=== PATIENT | male | born 1995 | race Caucasian/White ===

== ENCOUNTER 2018-09-18 14:44 | Outpatient (REF) | payer OTHER, SELFPAY ==
[2018-09-18 18:27] LABS: Abs Immature Grans 0.01 k/cumm (0.0-0.09); Absolute Basophil Count 0.02 k/cumm (0.0-0.2); Absolute Eosinophil Count 0.26 k/cumm (0.0-0.7); Absolute Lymphocyte Count 2.13 k/cumm (1.2-3.4); Absolute Monocyte Count 0.71 k/cumm (0.11-0.7); Absolute Neutrophil Count 3.93 k/cumm (1.2-6.7); Basophils % 0.3; Eosinophils % 3.7; HCT 41.4 % (40.0-50.0); Immature Grans % 0.1; Lymphocytes % 30.2; Mean Corp. HGB Concentration 33.8 g/dL (32.0-36.0); Mean Corpuscular Hemoglobin 29.1 pg (27.0-33.0); Mean Corpuscular Volume 86.1 fL (80-95); Mean Platelet Volume 11.4 fL (8.0-11.0); Monocytes % 10.1; Neutrophils % 55.6; Platelet Count 271 x1000/uL (130-400); RBC 4.81 m/cumm (4.50-6.00); RBC Distribution Width 12.2 % (11.8-14.1); White Blood Cell Count 7.06 k/cumm (4.4-10.8)
[2018-09-18 18:30] LABS: ALT 28 U/L (12-78); AST 23 U/L (15-37); Albumin 4.1 g/dL (3.4-5.0); Alkaline Phosphatase 129 U/L (46-116); Anion Gap 6.8 mmol/L (3-11); BUN 11 mg/dL (7-18); Bilirubin, Total 0.3 mg/dL (0.2-1.0); CO2 31.2 mmol/L (21.0-32.0); CREATININE 1.14 mg/dL (0.70-1.30); Calcium 9.3 mg/dL (8.5-10.1); Chloride 104 mmol/L (98-107); Glucose 96 mg/dL (70-100); Potassium 4.1 mmol/L (3.5-5.1); Sodium 142 mmol/L (136-145); TSH (W/Ref FT4) 0.89 uIU/mL (0.358-3.74); Total Protein 7.8 g/dL (6.4-8.2)
== END 2018-09-18 15:04 ==
LOC: LBN 14:44
PROVIDERS: PCP Family Medicine; Visit Provider Family Medicine
DX: R55 Syncope and collapse (principal)
CPT/HCPCS: 80053; 84443; 85025

== ENCOUNTER 2018-09-18 15:37 | Outpatient (CLI) | payer OTHER, SELFPAY ==
--- NOTE | 2018-10-13 08:39 | ZIOP_ITS ---
ZIO PATCH EVENT RECORDER REPORT DATE OF DICTATION September 14, 2018 INDICATION Syncope. PRESCRIBING CLINICIAN Callum Bray D.O. ENROLLMENT 09/18/2018 at 3:53 p.m. until 10/02/2018 at 3:53 p.m. FINDINGS 1. Baseline sinus rhythm, 38-196 beats per minute, average 79 beats per minute. 2. Rare PAC, less than 1%, no SVT, no AF. 3. Rare PVC, less than 1%, no VT. 4. 1 episode of sinus rate slowing with resulting 3.8 second pause, consistent with vagal event. 2 episodes with single dropped beats, resulting in 1.4 and 1.6 second pauses. 5. 6 trigger events: 2 events with 3.8 and 1.4 second pauses, as previously described. 4 events with sinus rhythm, 57-107 beats per minute. 6. 2 symptoms events: lightheaded with previously described 3.8 second pause. Urinary incontinence after passing out, lightheaded, fainted, reported 2 hours after EKG recording stopped. Oleg Harding M.D. LAWRENCE/candace T - 10/13/2018 CPT:0298T
== END 2018-09-18 15:57 ==
PROVIDERS: PCP Family Medicine; Visit Provider Family Medicine
DX: R55 Syncope and collapse (principal); I45.9 Conduction disorder, unspecified
CPT/HCPCS: 93225

== ENCOUNTER 2018-10-02 18:40 | Emergency (ER) | payer OTHER, SELFPAY ==
[2018-10-02] VITALS (27 sets, daily range): BP systolic 107–134; BP diastolic 57–78; PULSE 50–84; RESP 12–21; TEMP 36.7; O2SAT 95–100
--- NOTE | 2018-10-02 18:59 | DI.CT_ITS ---
SYMPTOM/DIAGNOSIS: DIZZINESS, ? SEIZURE CRANIAL CT (WITHOUT CONTRAST): A noncontrast cranial CT was performed. The ventricular system is normal in appearance. There is no evidence of an intracranial mass lesion. There is no evidence of a subdural or epidural hematoma. No focal areas of decreased attenuation are seen. CONCLUSION: Normal noncontrast Cranial CT.
--- NOTE | 2018-10-02 19:03 | ED.GENADUL_ITS ---
Discharge Plan Disposition Patient Disposition: HOME Condition: Stable Discharge Details Chief Complaint: Dizzy/Sync Clinical Impression: Syncope Primary Care Provider: Callum Bray ED Provider: Elsy Jaquez Home Meds and New Rx's Prescriptions: No Action No Known Home Meds RF: 0 Discharge Instructions Instructions: Syncope (ED) Additional Instructions: Your blood work and imaging did not show any concerning findings. Call your primary care doctor tomorrow morning to schedule follow-up appointment for reevaluation. Follow-up on your scheduled appointment for your echocardiogram. Do not drive or swim/bathe alone until cleared by your primary care provider. If you have fevers, chest pain, difficulty breathing, or other symptoms that are of concern to you return to the emergency department. Discharge Data Discharge Date/Time-TO BE ENTERED AT DEPARTURE: 10/02/18 22:02 Discharge Physician: Elsy Jaquez Medical Decision Making <Jake Mares MD - Last Filed: 10/03/18 08:25> 23 yo male who denies any chronic medical problems comes in with chief complaint of passing out. Apparently since July he has had episodes where he loses consciousness briefly. HE saw his pcp earlier this month and is currently wearing a zio patch. 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 Unclear how long he was on the ground for as it was unwitnessed, he woke up with coworker trying to wake him up. He was incontinent of urine which hasn't happened before. He denies any chest pain or pressure, sob, and has no symptoms now. Given urine incontinence could be having seizures, will image his head, ecg unremarkable, will order lab work and monitor. Suspect this could be orthostasis but will evaluate for other causes, and is already wearing a zio patch. No hypoxia or tachycardia and no evidence of dvt, no pleuritic chest pain so doubt PE. Is well low and perc negative as well. NO chest pain or pressure to suggest acs Pt will be signed out pending results of imaging and lab work. Differential Diagnosis vasovagal syncope, seizures, arrythmia ECG Data Attestation: I personally reviewed and interpreted this ECG (s) as follows: Prior ECG tracings: not available for review Interpretation: sinus rhythm, rate of 51, pr 168, no acute st t wave ischemic findings <Elsy Son Jaquez DO - Last Filed: 10/02/18 21:54> Medical Records Medical records reviewed: Yes I reviewed the patient's medical records. Imaging Data Radiologic Study: Radiologist's impression: CT Head Without Contrast EXAM DATE/TIME: 10/02/2018 6:59 PM FINDINGS: Brain: No evidence for acute transcortical infarct. No mass effect or midline shift. No extra-axial collection. No acute intracranial hemorrhage. Basal cisterns are patent. Ventricles: Normal. No ventriculomegaly. Bones/joints: Unremarkable. No acute fracture. Sinuses: Visualized sinuses are unremarkable. No acute sinusitis. Mastoid air cells: Visualized mastoid air cells are unremarkable. No mastoid effusion. Soft tissues: Unremarkable. IMPRESSION: No evidence for acute transcortical infarct, acute intracranial hemorrhage, or mass effect. Lab Data Lab results reviewed: Yes I reviewed the patient's lab results. Laboratory Tests Range/Units 10/02/18 10/02/18 19:06 19:06 WBC (4.4-10.8) k/cumm 7.06 RBC (4.50-6.00) m/cumm 4.45 L Hgb (13.5-17.5) g/dL 13.2 L Hct (40.0-50.0) % 38.5 L MCV (80-95) fL 86.5 MCH (27.0-33.0) pg 29.7 MCHC (32.0-36.0) g/dL 34.3 RDW (11.8-14.1) % 12.4 Plt Count (130-400) x1000/uL 247 MPV (8.0-11.0) fL 10.7 Immature Gran % 0.1 Neutrophils % 57.9 Lymphocytes % 28.5 Monocytes % 9.1 Eosinophils % 4.1 Basophils % 0.3 Absolute Neutrophils (1.2-6.7) k/cumm 4.09 Absolute Lymphocytes (1.2-3.4) k/cumm 2.01 Absolute Monocytes (0.11-0.7) k/cumm 0.64 Absolute Eosinophils (0.0-0.7) k/cumm 0.29 Absolute Basophils (0.0-0.2) k/cumm 0.02 Sodium (136-145) mmol/L 140 Potassium (3.5-5.1) mmol/L 4.3 Chloride (98-107) mmol/L 103 Carbon Dioxide (21.0-32.0) mmol/L 30.6 Anion Gap (3-11) mmol/L 6.4 BUN (7-18) mg/dL 17 Creatinine (0.70-1.30) mg/dL 1.17 Estimated GFR/1.73 m2 (mL/min/1.73m2) >= 60.00 Glucose (70-100) mg/dL 86 Calcium (8.5-10.1) mg/dL 8.6 Magnesium (1.8-2.4) mg/dL 1.8 Total Bilirubin (0.2-1.0) mg/dL 0.3 AST (15-37) U/L 22 ALT (12-78) U/L 30 Alkaline Phosphatase (46-116) U/L 112 Troponin I (0.00-0.06) ng/mL < 0.02 Total Protein (6.4-8.2) g/dL 7.4 Albumin (3.4-5.0) g/dL 3.7 ECG Data Attestation: I personally reviewed and interpreted this ECG (s) as follows: Interpretation: Rate of 51, sinus bradycardia, no acute ST elevation or depression. QTc 383. QRS 98. T wave inversion in lead V2. HPI <Jake Mares MD - Last Filed: 10/03/18 08:25> General Mode of arrival: ambulatory . Date/Time Provider Initiated Documentation: 10/02/18 18:49 . Limitations to Documentation: no limitations . Information obtained by: patient . History of Present Illness 23 year old M presents to the emergency department with the chief complaint of passed out, Patient started experiencing this hour(s) (2) and it has been intermittent. No relieving factors improve symptom(s), No exacerbating factors reported . Patient notes no other symptoms.. Patient did receive the following treatments prior to arrival, none Related Data Home Medications Medication Instructions Recorded Confirmed Unknown [No Known Home Meds] 06/26/18 10/02/18 Allergies Allergy/AdvReac Type Severity Reaction Status Date / Time amoxicillin Allergy Severe facial Verified 10/02/18 19:26 swelling, no use of legs Penicillins Allergy Severe facial Verified 10/02/18 19:26 swelling, no use of legs General Stated Complaint: Dizzy/Sync REINIER: 2 Review of Systems <Jake Mares MD - Last Filed: 10/03/18 08:25> Review of Systems All systems reviewed & are unremarkable except as noted in HPI and below Constitutional Denies chills and Denies fever(s) ENT Denies change in voice Cardiovascular Denies chest pain and Denies dyspnea Respiratory Denies cough and Denies dyspnea Gastrointestinal Denies abdominal pain, Denies nausea and Denies vomiting Musculoskeletal Denies joint swelling Integumentary/Breasts Denies rash PFSH <Jake Mares MD - Last Filed: 10/03/18 08:25> Medical History Phimosis (Chronic) Attention deficit hyperactivity disorder (Acute) Family History Mother No problems noted. Father No problems noted. Sister No problems noted. Sister No problems noted. Sister No problems noted. Sister No problems noted. Sister No problems noted. Brother No problems noted. 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 Smoking and Tabacco status: Never substance use type: does not use fire extinguisher in home: Yes carbon monox detector in home: Yes Exam <Jake Mares MD - Last Filed: 10/03/18 08:25> Const General: no acute distress Orientation: alert HENMT Head: normal to inspection Ears: external ears normal General nose exam: external nose normal Mouth: moist mucous membranes Eyes General: appearance normal, both eyes and all related structures Neck Neck: normal visual inspection Resp Effort & Inspection: normal respiratory effort and able to speak in complete sentences Cardio Rate: regular rate Skin General skin exam: no rashes or lesions noted Neuro General: alert and oriented x3 Extrem General: normal to inspection Psych Mental Status: mental status grossly normal Course <Jake Mares MD - Last Filed: 10/03/18 08:25> Vital Signs Temperature 36.7 C 10/02/18 18:43 Pulse 59 L 10/02/18 18:43 Respiratory Rate 16 10/02/18 18:43 Blood Pressure 134/68 10/02/18 18:43 Pulse Oximetry 100 10/02/18 18:43 Temperature 36.7 C 10/02/18 18:43 Temperature Source Temporal Artery Scan 10/02/18 18:43 Pulse 59 L 10/02/18 18:43 Respiratory Rate 16 10/02/18 18:43 Blood Pressure 134/68 10/02/18 18:43 Blood Pressure Position Sitting 10/02/18 18:43 Pulse Oximetry 100 10/02/18 18:43 Oxygen Delivery Method Room Air 10/02/18 18:43 Oxygen Flow Rate 0 10/02/18 18:43 Pain Level 0 10/02/18 18:43 Sign Out <Jake Mares MD - Last Filed: 10/03/18 08:25> Sign Out Data: Sign Out Comment: follow up on labs and imaging Last updated by Jake Mares MD at 10/02/18 19:29 Post-Handoff Eval: CT head negative. EKG and labs unremarkable. He has had 7-8 episodes of lightheadedness since July. He has had 2 syncopal episodes, once on July 27 while standing in jainism - and once today while standing associated with urinary incontinence. No complaints of chest pain, shortness of breath, headache, palpitations. No oral injury. Differential diagnosis includes seizure versus syncope. Patient thinks that the episodes are usually related to when he does not drink enough water. Vitals remained stable. No acute findings on exam. No focal deficits. Patient seen by PCP for this who has scheduled echocardiogram on October 15 and he currently has a Zio patch in place. He is feeling much better and is requesting to go home. He is instructed to call his primary care doctor tomorrow to schedule follow-up appointment for reevaluation and whether PCP can consider ordering an EEG. He is instructed to drink plenty of water, get plenty of rest, and to return here at any time if worse.
[2018-10-02 19:14] LABS: Abs Immature Grans 0.01 k/cumm (0.0-0.09); Absolute Basophil Count 0.02 k/cumm (0.0-0.2); Absolute Eosinophil Count 0.29 k/cumm (0.0-0.7); Absolute Lymphocyte Count 2.01 k/cumm (1.2-3.4); Absolute Monocyte Count 0.64 k/cumm (0.11-0.7); Absolute Neutrophil Count 4.09 k/cumm (1.2-6.7); Basophils % 0.3; Eosinophils % 4.1; HCT 38.5 % (40.0-50.0); HGB 13.2 g/dL (13.5-17.5); Immature Grans % 0.1; Lymphocytes % 28.5; Mean Corp. HGB Concentration 34.3 g/dL (32.0-36.0); Mean Corpuscular Hemoglobin 29.7 pg (27.0-33.0); Mean Corpuscular Volume 86.5 fL (80-95); Mean Platelet Volume 10.7 fL (8.0-11.0); Monocytes % 9.1; Neutrophils % 57.9; Platelet Count 247 x1000/uL (130-400); RBC 4.45 m/cumm (4.50-6.00); RBC Distribution Width 12.4 % (11.8-14.1); White Blood Cell Count 7.06 k/cumm (4.4-10.8)
[2018-10-02 19:28] LABS: ALT 30 U/L (12-78); AST 22 U/L (15-37); Albumin 3.7 g/dL (3.4-5.0); Alkaline Phosphatase 112 U/L (46-116); Anion Gap 6.4 mmol/L (3-11); BUN 17 mg/dL (7-18); Bilirubin, Total 0.3 mg/dL (0.2-1.0); CO2 30.6 mmol/L (21.0-32.0); CREATININE 1.17 mg/dL (0.70-1.30); Calcium 8.6 mg/dL (8.5-10.1); Chloride 103 mmol/L (98-107); Glucose 86 mg/dL (70-100); Magnesium 1.8 mg/dL (1.8-2.4); Potassium 4.3 mmol/L (3.5-5.1); Sodium 140 mmol/L (136-145); Total Protein 7.4 g/dL (6.4-8.2)
[2018-10-02 19:36] LABS: Troponin I < 0.02 ng/mL (0.00-0.06)
--- NOTE | 2018-10-02 20:06 | DI.VRAD_ITS ---
EXAM: CT Head Without Contrast EXAM DATE/TIME: 10/02/2018 6:59 PM CLINICAL HISTORY: 23 years old, male; Signs and symptoms; Dizziness TECHNIQUE: Axial computed tomography images of the head/brain without contrast. All CT scans at this facility use at least one of these dose optimization techniques: automated exposure control; mA and/or kV adjustment per patient size (includes targeted exams where dose is matched to clinical indication); or iterative reconstruction. Coronal and sagittal reformatted images were created and reviewed. COMPARISON: No relevant prior studies available. FINDINGS: Brain: No evidence for acute transcortical infarct. No mass effect or midline shift. No extra-axial collection. No acute intracranial hemorrhage. Basal cisterns are patent. Ventricles: Normal. No ventriculomegaly. Bones/joints: Unremarkable. No acute fracture. Sinuses: Visualized sinuses are unremarkable. No acute sinusitis. Mastoid air cells: Visualized mastoid air cells are unremarkable. No mastoid effusion. Soft tissues: Unremarkable. IMPRESSION: No evidence for acute transcortical infarct, acute intracranial hemorrhage, or mass effect. Dictated and Authenticated by: Emmanuel Williamson MD. Ordering:GHISLAINE Joseph MD
[2018-10-03 01:20] VITALS: BP 112/57; PULSE 50; RESP 15; O2SAT 96
== END 2018-10-02 22:02 | disposition home or self-care (01) ==
PROVIDERS: Emergency Medicine; Emergency Provider Physician Assistant; PCP Family Medicine
DX: R55 Syncope and collapse (principal)
CPT/HCPCS: 36415; 80053; 93005; 99285; 70450; 83735; 84484; 85025; 93010

== ENCOUNTER 2018-10-03 09:31 | Outpatient (CLI) | payer OTHER, SELFPAY ==
--- NOTE | 2018-10-03 15:14 | MERGE_ITS ---
*[facility]* *[facility]* [address] [place] [address] Date of study: 10/03/2018 Transthoracic Echocardiography M-mode, complete 2D, complete spectral Doppler, and color Doppler *STUDY CONCLUSIONS* Impressions: Normal study. Summary: 1. Left ventricle: The cavity size was normal. Wall thickness was normal. Systolic function was normal. The estimated ejection fraction was 60-65%. Wall motion was normal; there were no regional wall motion abnormalities. 2. Right ventricle: The cavity size was normal. Wall thickness was normal. Systolic function was normal. *PATIENT PRESENTATION* Height: 180.3cm ((71in) ) S/D Pressure: 116 / 72 Weight: 113.4kg ((249.5lb) ) BSA: 2.42m^2 Test start time: 03:10 PM. Test stop time: 04:15 PM. PERFORMING Unknown PERFORMING [facility] [employer] MAKER Batsheva Malone ORDERING Callum Bray REFERRING Callum Bray *PROCEDURE DATA* Procedure information: This study was interpreted by [facility]. Pertinent images and digital data are archived for permanent storage and are available for subsequent review. No prior study was available for comparison. Study status: Routine. Transthoracic echocardiography. M-mode, complete 2D, complete spectral Doppler, and color Doppler. A Transthoracic Echocardiogram was performed. Scanning was performed from the parasternal, apical, subcostal, and suprasternal notch acoustic windows. Images were obtained using an ScreachTV 2000 cardiac ultrasound machine. Image quality was adequate. Study completion: The patient tolerated the procedure well. History: PMH: Syncope. *CARDIAC ANATOMY* Left ventricle: The cavity size was normal. Wall thickness was normal. Systolic function was normal. The estimated ejection fraction was 60-65%. Wall motion was normal; there were no regional wall motion abnormalities. Aortic valve: Trileaflet; normal thickness leaflets. Mobility was not restricted. Doppler: Transvalvular velocity was within the normal range. There was no stenosis. There was no significant regurgitation. VTI ratio of LVOT to aortic valve: 1.06. Valve area (VTI): 3.8cm^2. Indexed valve area (VTI): 1.6cm^2/m^2. Peak velocity ratio of LVOT to aortic valve: 0.87. Valve area (Vmax): 3.1cm^2. Indexed valve area (Vmax): 1.3cm^2/m^2. Mean velocity ratio of LVOT to aortic valve: 0.78. Valve area (Vmean): 2.8cm^2. Indexed valve area (Vmean): 1.1cm^2/m^2. Mean gradient (S): 3.7mm Hg. Peak gradient (S): 6.8mm Hg. Aorta: Aortic root: The aortic root was normal in size. Ascending aorta: The ascending aorta was normal in size. Mitral valve: Structurally normal valve. Mobility was not restricted. Doppler: Transvalvular velocity was within the normal range. There was no evidence for stenosis. There was no significant regurgitation. Valve area by pressure half-time: 3.4cm^2. Indexed valve area by pressure half-time: 1.4cm^2/m^2. Peak gradient (D): 2.3mm Hg. Left atrium: The atrium was normal in size. Right ventricle: The cavity size was normal. Wall thickness was normal. Systolic function was normal. Pulmonic valve: Doppler: Transvalvular velocity was within the normal range. There was no evidence for stenosis. There was trivial regurgitation. Peak gradient (S): 7.2mm Hg. Tricuspid valve: Structurally normal valve. Doppler: Transvalvular velocity was within the normal range. There was no evidence for stenosis. There was trivial regurgitation. Pulmonary artery: Pulmonary systolic pressure was within the normal range. Right atrium: The atrium was normal in size. Pericardium: There was no pericardial effusion. Systemic veins: Inferior vena cava: The vessel was normal in size. The respirophasic diameter changes were in the normal range (greater than or equal to 50%), consistent with normal central venous pressure. Measurements Left ventricle Value Reference LV ID, ED, PLAX 4.8 cm 3.5 - 6.0 LV ID, ES, PLAX 3.1 cm 2.1 - 4.0 LV PW thickness, ED, PLAX 0.9 cm LV end-diastolic volume, 1-p A2C 164 ml LV ejection fraction, 1-p A2C 51 % LV end-diastolic volume, 1-p A4C 142 ml LV ejection fraction, 1-p A4C 56 % LV e', medial 0.103 m/sec LV E/e', medial 7 Ventricular septum Value Reference IVS thickness, ED, PLAX 0.9 cm LVOT Value Reference LVOT ID, A-P 2.1 cm LVOT area 3.6 cm^2 LVOT peak velocity, S 1.13 m/sec LVOT mean velocity, S 0.7 m/sec LVOT VTI, S 25.4 cm LVOT peak gradient, S 5.2 mm Hg LVOT mean gradient, S 2.4 mm Hg Stroke volume (SV), LVOT DP 90 ml Stroke index (SV/bsa), LVOT DP 37 ml/m^2 Aortic valve Value Reference Aortic valve peak velocity, S 1.3 m/sec Aortic valve mean velocity, S 0.89 m/sec Aortic valve VTI, S 24.0 cm Aortic mean gradient, S 3.7 mm Hg Aortic peak gradient, S 6.8 mm Hg VTI ratio, LVOT/AV 1.06 Aortic valve area, VTI 3.8 cm^2 Velocity ratio, peak, LVOT/AV 0.87 Aortic valve area, peak velocity 3.1 cm^2 Velocity ratio, mean, LVOT/AV 0.78 Aortic valve area, mean velocity 2.8 cm^2 Aortic valve area/bsa, mean velocity 1.1 cm^2/m^2 Aorta Value Reference Aortic root ID, ED 3.1 cm Ascending aorta ID, A-P, S 2.9 cm Left atrium Value Reference LA ID, A-P, ES 3.3 cm LA ID/bsa, A-P 1.3 cm/m^2 <=2.2 LA area, ES, A4C 18.7 cm^2 8.8 - 23.4 LA area, ES, A2C 18 cm^2 LA volume/bsa, S 23 ml/m^2 LA volume, ES, 2-p 50 ml LA volume/bsa, ES, 2-p 21 ml/m^2 LA/aortic root ratio 1.05 Mitral valve Value Reference Mitral E-wave peak velocity 0.76 m/sec Mitral A-wave peak velocity 0.48 m/sec Mitral deceleration time 222 ms 150 - 230 Mitral pressure half-time 64 ms Mitral peak gradient, D 2.3 mm Hg Mitral E/A ratio, peak 1.58 Mitral valve area, PHT, DP 3.4 cm^2 Pulmonary arteries Value Reference PA pressure, S, DP 16 mm Hg <=30 Tricuspid valve Value Reference Tricuspid regurg peak velocity 1.8 m/sec Tricuspid peak RV-RA gradient 13.7 mm Hg Systemic veins Value Reference Estimated CVP 10 mm Hg Right ventricle Value Reference RV pressure, S, DP 24 mm Hg <=30 Pulmonic valve Value Reference Pulmonic peak gradient, S 7.2 mm Hg Legend: (L) and (H) guero values outside specified reference range. I have personally reviewed the images and have reviewed and edited the reported findings. Electronically signed by Oleg Harding 10/05/2018 12:09
== END 2018-10-03 09:51 ==
PROVIDERS: PCP Family Medicine; Visit Provider Family Medicine
DX: R55 Syncope and collapse (principal); R42 Dizziness and giddiness
CPT/HCPCS: 93306

== ENCOUNTER 2018-10-09 01:01 | Outpatient (CLI) | payer OTHER, SELFPAY ==
--- NOTE | 2018-10-09 09:53 | DI.MRI_ITS ---
SYMPTOM/DIAGNOSIS: REPEATED SYNCOPE, NORMAL DRY CT, R55 BRAIN MRA: Comparison is made with head CT dated 10/02/18. A 3D time of flight study was performed. The [place] vasculature appears intact. There is no evidence of aneurysm, vascular occlusion or significant stenosis. IMPRESSION: Negative MRA of the [place].
== END 2018-10-09 01:21 ==
PROVIDERS: PCP Family Medicine; Visit Provider Family Medicine
DX: R55 Syncope and collapse (principal)
CPT/HCPCS: 70544

== ENCOUNTER 2020-06-10 02:00 | Outpatient (CLI) | payer OTHER, SELFPAY ==
[2020-06-13 10:09] LABS: SARS-CoV-2 RNA Not Detected (NotDetected); SARS-CoV-2 RNA Source Nasal/Nares
== END 2020-06-10 02:20 ==
PROVIDERS: PCP Family Medicine; Visit Provider Nurse Practitioner
DX: Z11.59 Encounter for screening for other viral diseases (principal); Z01.818 Encounter for other preprocedural examination
CPT/HCPCS: U0003

== ENCOUNTER 2021-05-03 08:51 | Outpatient (CLI) | payer OTHER, SELFPAY ==
--- OUTSIDE RECORDS SUMMARY | 2021-05-03 08:54 | XMS_ITS ---
:1995 Author Care Team Providers Name Role Phone FANTASMA BRANTLEY ([facility]) Primary Care Provi marshall [phone] MICHELLE DALTON MD Lathe Hand [phone] [facility] Primary Care Provider [phone] Allergies Code Code System Name Reaction Severity Status Onset 723 RxNorm Amoxicillin ? ? Active ? Penicillins ? ? Active ? Medications Name Status Start Date Stop Date ? ? zolpidem 5 mg tablet Completed ? 10/22/2019 take 1-2 PO for sleep study if needed Problems Name Status Onset Date Source ? Attention Deficit Hyperactivity Disorder Active 020 ? Phimosis Active 09/21/2019 ? Syncope Active 09/21/2019 ? 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 Snoring Active 09/22/2019 ? Obstructive Sleep Apnea Syndrome Active ? ? Procedures None recorded. Results Lab Results None recorded. Past Encounters 11/01/2020 Obstructive Sleep Apnea Syndrome Neisha Do [employer]: [address] [place] [phone], Ph. 07/06/2020 Obstructive Sleep Apnea Syndrome Neisha Do [employer] ASS[employer]: [address] [place] [phone], Ph. 01/07/2020 Obstructive Sleep Apnea Syndrome Neisha Do [employer]: [address] [place] [phone], Ph. Social History Tobacco Smoking Status Never Smoker Vaccine List None recorded. Plan of Care Reminders Provider Appointments None ? ? recorded. Lab None ? ? recorded. Referral None ? ? recorded. Procedures None ? ? recorded. Surgeries None ? ? recorded. Imaging None ? ? recorded. Vitals 11/01/2020 09:30AM Office 15 Height Weight BMI 180.34 cm 102.51 kg 31.5 kg/m2 07/06/2020 12:30PM Office 15 Height Weight BMI 180.34 cm 102.51 kg 31.5 kg/m2 01/07/2020 01:30PM Office 30 Height Weight BMI Blood Pressure 180.34 cm 102.42 kg 31.5 kg/m2 124/72 mm[Hg] 10/22/2019 01:15PM Office 30 Height Weight BMI Blood Pressure 180.34 cm 104.78 kg 32.2 kg/m2 118/80 mm[Hg] 09/22/2019 09:45AM New Patient 45 Height Weight BMI Blood Pressure 180.34 cm 104.78 kg 32.2 kg/m2 130/70 mm[Hg]
[2021-05-03 19:54] LABS: COVID-19 RT-PCR UVMMC Result Negative (Negative)
== END 2021-05-03 08:52 | disposition home or self-care (01) ==
PROVIDERS: Nurse Practitioner Family; PCP Family Medicine; Visit Provider Nurse Practitioner Family
DX: Z20.822 Contact with and (suspected) exposure to COVID-19 (principal)
CPT/HCPCS: U0003

== ENCOUNTER 2021-08-14 08:44 | Outpatient (CLI) | payer OTHER, SELFPAY ==
[2021-08-15 07:32] LABS: COVID-19 RT-PCR UVMMC Result Positive (Negative)
== END 2021-08-14 08:45 | disposition home or self-care (01) ==
LOC: LBO 08:44
PROVIDERS: PCP Family Medicine; Visit Provider Nurse Practitioner Family
DX: Z20.822 Contact with and (suspected) exposure to COVID-19 (principal)
CPT/HCPCS: U0003